=== PATIENT | female | born 1990 ===

== ENCOUNTER 2017-03-10 14:17 | Inpatient (IN) | payer MEDICAID, OTHER ==
[2017-03-10 14:29] VITALS: O2SAT 100
--- NOTE | 2017-03-10 14:34 | ED PDOC ---
Psych Transfer Clearance - Clearance Statement Clearance Statement: Reviewed vital signs, lab results and transfer papers. Patient clinically stable for psychiatric admission.
--- NOTE | 2017-03-10 18:15 | PCM.BM ---
Treatment Plan Problems - Problems identified on initial assessmt Feelings of Worthlessness Date Initiated: 03/10/17 Time Initiated: 18:16 Assessment reference: NA Status: Active Treatment assets and liabiliti Patient Assests: adapts well, cooperative, insightful, self-reliant, ADL independent, physically healthy Patient Liabilities: poor support system, relationship conflicts - Milieu Protocol Maintain good personal hygiene: daily Encourage regular showers, daily Remind patient to perform daily oral care, other Assist patient to perform ADL's Conduct patient checks and document Observation sheet: Q15 minutes Maintain personal safety: every shift Educate patient to report safety concerns to staff, every shift Monitor environment for contraband/sharps Medication safety: Monitor for expected outcome, potential side effects: every shift, Assess barriers to learning: every shift, Assess readiness for medication education: every shift
--- NOTE | 2017-03-10 18:27 | PCM.BM ---
Treatment Plan Problems - Problems identified on initial assessmt Problem 1 Date Initiated: 03/10/17 Time Initiated: 18:16 Assessment reference: NA Status: Active Treatment assets and liabiliti Patient Assests: adapts well, cooperative, insightful, self-reliant, ADL independent, physically healthy Patient Liabilities: poor support system, relationship conflicts - Milieu Protocol Maintain good personal hygiene: daily Encourage regular showers, daily Remind patient to perform daily oral care, other Assist patient to perform ADL's Conduct patient checks and document Observation sheet: Q15 minutes Maintain personal safety: every shift Educate patient to report safety concerns to staff, every shift Monitor environment for contraband/sharps Medication safety: Monitor for expected outcome, potential side effects: every shift, Assess barriers to learning: every shift, Assess readiness for medication education: every shift
[2017-03-10] MEDS ORDERED: DiphenhydrAMINE 50 mg/ml Inj IM PRN (19:55)
[2017-03-10] MEDS ORDERED: Alum-Mag Hydrox-Simethicone Susp (30 mL) PO PRN (19:55)
[2017-03-10] MEDS ORDERED: Magnesium Hydroxide Susp 30 ml UD PO PRN (19:55)
[2017-03-11 07:11] LABS: T4 9.46 ug/dl (5.5-11.0)
[2017-03-11 07:24] LABS: THYROID STIMULATING HORMONE 0.46 mIU/ML (0.46-4.68)
[2017-03-11 09:24] VITALS: BP 117/71; PULSE 94; RESP 20; TEMP 96.9
--- NOTE | 2017-03-11 10:21 | PCM.PSYCH ---
Initial Psychiatric Evaluation - Initial Psychiatric Evaluation Type of Admission: Voluntary Legal Status: Capacity Chief Complaint (in patient's own words): i was just drunk and said stupid things Patient's Reaction to Hospitalization: has signed a 48 hour notice History of Present Illness and Precipitating Events: pt is from [place] and came to this area because of the [place]. she was visiting relatives. pt's returned to [place] and they had a fight over the phone. the pt's apparently overdosed and was treated in [place]. pt states she started drinking alcohol because she was upset and frustrated and when she was intoxicated made threats on the phone to kill herself. pt's family in [place] called the police. 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 she states she is not suicidal. she does admit to a psychiatric history and "i check myself in when i need help..i'm not lying to you." pt reports she has a history of bipolar disorder, adhd and ocd. she most recently took abilify and cymbalta, but states she is not taking currently. she has providers in [place]. she denies any current symptoms of depression, psychosis or eloy. pt's mother has arrived from [place] and will pick pt up and stay with her until she returns to [place] on [id number] of march. pt is denying any suicidal thoughts. Current Medications: Active Medications Generic Name Dose Route Start Last Admin Trade Name Freq PRN Reason Stop Dose Admin Acetaminophen 650 mg 03/10/17 19:55 Tylenol 325mg Tab PO Q4 PRN Pain, moderate (4-7) Al Hydrox/Mg Hydrox/Simethicone 30 ml 03/10/17 19:55 Maalox Plus 30 Ml PO Q4 PRN Dyspepsia Diphenhydramine HCl 50 mg 03/10/17 19:55 Benadryl IM Q6 PRN Extrapyramidal S/S Unable PO Diphenhydramine HCl 50 mg 03/10/17 19:55 Benadryl PO Q6 PRN Extrapyramidal Symptoms Haloperidol 5 mg 03/10/17 19:55 Haldol PO Q4 PRN Agitation Haloperidol Lactate 5 mg 03/10/17 19:55 Haldol IM Q4 PRN Agitation, Unable to Take PO Lorazepam 2 mg 03/10/17 19:55 Ativan IM Q4 PRN Anxiety/Agitation,Unable PO Lorazepam 2 mg 03/10/17 19:55 Ativan PO Q4 PRN Anxiety/Agitation Magnesium Hydroxide 30 ml 03/10/17 19:55 Milk Of Magnesia PO HS PRN Constipation does not take medications currently Past Psychiatric History - Past Psychiatric History Previous Treatment History: Inpatient Prior Professional Help: has providers in [place]. has history of hospitalizations Explanation of prior treatment: states cymbalta and abilify were helpful. states that concerta was helpful in the past History of Abuse: denies History of ETOH/Drug Use: smokes 1ppd of cigarettes. she denies use of illicit substances. only drinks occasionally History of Family Illness: states her mother has history of bipolar disorder Pertinent Medical Hx (Current Medical&Sleep Prob, Allergies): Allergies Allergy/AdvReac Type Severity Reaction Status Date / Time No Known Allergies Allergy Verified 03/10/17 00:46 Nicotine 21 mg/24 hr [Nicoderm Cq] 1 each TD DAILY #30 patch 03/11/17 Review of Systems - Psychiatric Psychiatric: As Per [facility] Mental Status Examination - Personal Presentation Personal Presentation: Looks stated age - Affect Affect: Broad - Motor Activity Motor Activity: Calm - Reliability in Providing Information Reliability in Providing Information: Good - Speech Speech: Organized - Mood Mood: Neutral - Formal Thought Process Formal Thought Process: No Impairment - Obsessions/Compulsions Obsessions: No Compulsions: No - Cognitive Functions Orientation: Person, Place, Situation, Time Sensorium: Alert Attention/Concentration: Attentive Abstract Thinking: [place] Estimate of Intelligence: Average Judgement: Intact, as evidence by: Insight regarding need for hospitalization Memory: Recent intact, as evidence by: Ability to recall events of the day, Remote intact, as evidenced by: Abilit to recall sig. life events - Risk Risk: Suicidal (denies current thoughts, denies previous attempts. ), Self- mutilation (states she cut herself in past) - Strength & Assets Inventory Strength & Assets Inventory: Intelligence, Family support, Life experience, Cooperative DSM 5 DX - DSM 5 DSM 5 Diagnosis: bipolar disorder by history adhd by history - Recommended/Plan of Treatment Treatment Recommendations and Plan of Treatment: pt will be discharged mother will pick pt up and be with her during her stay in [place] pt will return to her providers in [place] pt will call 911 if any suicidal or homicidal thoughts pt encouraged to abstain from the use of alcohol, tobacco or other illicit substances Prognosis: fair - Smoking Cessation Smoking Cessation Initiated: Yes
--- NOTE | 2017-03-11 10:30 | PCM.PYCHDC ---
Mental Status Examination - Mental Status Examination Orientation: Person, Place, Situation, Time (see the admission note for details) Discharge Summary - Discharge Note Reason for Hospitalization: made suicidal threats while intoxicated Psychiatric History (includes Medical, Family, Personal Hx): history of bipolar disorder, hospitalized in [place] Laboratory Data: Abnormal Lab Results 03/11/17 06:25 Triglycerides 176 H Cholesterol 189 LDL Cholesterol Direct 144 H HDL Cholesterol 29 L Thyroxine (T4) 9.46 TSH 3rd Generation 0.46 Consultations:: List each consultation separately and include: 1. Reason for request. 2. Findings. 3. Follow-up Summary of Hospital Course include:: 1. Description of specific treatment plan utilized for patients during their course of treatmen. 2. Summarize the time- course for resolution of acute symptoms and/or regressed behaviors. 3. Describe issues identified and worked on during hospitalization. 4. Describe medication utilized. 5. Describe medical problems identified and treated. 6. Reassessment of suicide risk Summary of Hospital Course: pt is from [place] and came to this area because of the [place]. she was visiting relatives. pt's returned to [place] and they had a fight over the phone. the pt's apparently overdosed and was treated in [place]. pt states she started drinking alcohol because she was upset and frustrated and when she was intoxicated made threats on the phone to kill herself. pt's family in [place] called the police. 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 she states she is not suicidal. she does admit to a psychiatric history and "i check myself in when i need help..i'm not lying to you." pt reports she has a history of bipolar disorder, adhd and ocd. she most recently took abilify and cymbalta, but states she is not taking currently. she has providers in [place]. she denies any current symptoms of depression, psychosis or eloy. pt's mother has arrived from [place] and will pick pt up and stay with her until she returns to [place] on [id number] of march. pt is denying any suicidal thoughts. - Final Diagnosis (DSM 5) Condition upon Discharge: GOOD DSM 5: bipolar disorder unspecified adhd Disposition: HOME/ ROUTINE Follow-up Treatment Plan: pt will be discharged mother will pick pt up and be with her during her stay in [place] pt will return to her providers in [place] pt will call 911 if any suicidal or homicidal thoughts pt encouraged to abstain from the use of alcohol, tobacco or other illicit substances Prescriptions/Medication Reconciliation: Nicotine 21 mg/24 hr [Nicoderm Cq] 1 each TD DAILY #30 patch - Smoking Cessation Smoking Cessation Medication prescribed: Yes - Antipsychotic Medications Pt discharged on 2 or more routine antipsychotic medications: No
== END 2017-03-11 10:00 | disposition home or self-care (01) | DRG 885 ==
LOC: H.ER 14:17 → H.PSYCH 14:33
PROVIDERS: ADMIT Psychiatry & Neurology Psychiatry; ATTEND Psychiatry & Neurology Psychiatry
DX: F31.9 Bipolar disorder, unspecified (principal); R45.851 Suicidal ideations; F90.9 Attention-deficit hyperactivity disorder, unspecified type; F42.9 Obsessive-compulsive disorder, unspecified; Z87.891 Personal history of nicotine dependence; K59.00 Constipation, unspecified; F41.9 Anxiety disorder, unspecified